=== PATIENT | male | born 1990 | race African-American/Black ===

== ENCOUNTER 2020-03-30 08:53 | Emergency (ER) | payer SELFPAY ==
[~2020-03-30] VITALS: Ht 175.3 cm; Wt 69.0 kg
[2020-03-30] MEDS ORDERED: TETRACAINE 0.5% OPHTH DROPS 4ML BOTHEYE ONE (09:30)
[2020-03-30] MEDS ORDERED: FLUORESCEIN SODIUM 1MG/STRIP BOTHEYE ONE (09:30)
[2020-03-30 10:32] VITALS: BP 111/69
== END 2020-03-30 10:35 | disposition home or self-care (01) ==
LOC: ER 08:53
DX: H10.023 Other mucopurulent conjunctivitis, bilateral (principal); Z98.890 Other specified postprocedural states; Z82.49 Family history of ischemic heart disease and other diseases of the circulatory system
CPT/HCPCS: 99283